=== PATIENT | female | born 1940 | race Caucasian/White ===

== ENCOUNTER → 2023-11-06 10:13 | Outpatient (REF) | payer MEDICARE, BC, SELFPAY ==
[2023-11-06 11:55] LABS: % Basophils 1.3 % (0-2); % Eosinophils 5.7 % (0-6); % Immature Granulocytes 0.2 % (0-0.5); % Monocytes 14.9 % (1.7-9.3); % Neutrophils 68.9 % (42.2-75.2); Absolute Basophils 0.1 10^3/uL (0-0.2); Absolute Eosinophils 0.3 10^3/uL (0-0.7); Absolute Lymphocytes 0.4 10^3/uL (1.2-3.4); Absolute Monocytes 0.7 10^3/uL (0.1-0.6); Absolute Neutrophils 3.3 10^3/uL (1.4-6.5); Hematocrit 35.1 % (37.0-47.0); Hemoglobin 10.7 g/dL (12.0-16.0); Mean Corp Hgb Conc. 30.5 g/dL (33.0-37.0); Mean Corpuscular Hgb 25.8 pg (27.0-31.0); Mean Corpuscular Volume 84.6 fL (81.0-99.0); Mean Platelet Volume 10.8 fL (7.4-10.4); Nucleated Red Blood Cells % 0 %; Platelet Count 248 10^3/uL (130-400); Red Blood Cell Count 4.15 10^6/uL (4.20-5.40); Red Cell Dist. Width 17.6 % (11.5-14.5); White Blood Cell Count 4.8 10^3/uL (4.8-10.8)
[2023-11-06 12:13] LABS: ALT (SGPT) < 10 U/L (0-35); AST (SGOT) 14 U/L (14-36); Albumin 2.6 g/dl (3.5-5.0); Alkaline Phosphatase 65 U/L (38-126); Blood Urea Nitrogen 22 mg/dl (7-17); Calcium 8.2 mg/dl (8.4-10.2); Carbon Dioxide 23 mmol/L (22-30); Chloride 109 mmol/L (98-107); Glucose 79 mg/dl (70-99); Potassium 4.4 mmol/L (3.5-5.1); Sodium 137 mmol/L (135-145); Total Bilirubin 0.4 mg/dl (0.2-1.3); Total Protein 5.3 g/dl (6.3-8.2); eGFR > 60.00
[2023-11-06 13:49] LABS: TSH 0.39 uIU/ml (0.47-4.68)
[2023-11-06 14:00] LABS: Glycohemoglobin (HgbA1c) 6.3 % (4.0-5.6)
== END ==
LOC: OLABP 10:13
PROVIDERS: ATTENDING PHYSICIAN Family Medicine
DX: E11.9 Type 2 diabetes mellitus without complications (principal); E03.9 Hypothyroidism, unspecified; K59.00 Constipation, unspecified; M62.59 Muscle wasting and atrophy, not elsewhere classified, multiple sites; R26.2 Difficulty in walking, not elsewhere classified; Z74.1 Need for assistance with personal care; J18.9 Pneumonia, unspecified organism; I48.21 Permanent atrial fibrillation; F22 Delusional disorders; I10 Essential (primary) hypertension
CPT/HCPCS: 36415; 80053; 83036; 84443; 85025

== ENCOUNTER → 2024-01-20 11:22 | Outpatient (REF) | payer MEDICARE, BC, SELFPAY ==
[2024-01-20 13:06] LABS: Hematocrit 35.9 % (37.0-47.0); Mean Corp Hgb Conc. 30.6 g/dL (33.0-37.0); Mean Corpuscular Hgb 27.7 pg (27.0-31.0); Mean Corpuscular Volume 90.4 fL (81.0-99.0); Mean Platelet Volume 11.7 fL (7.4-10.4); Platelet Count 248 10^3/uL (130-400); Red Blood Cell Count 3.97 10^6/uL (4.20-5.40); Red Cell Dist. Width 21.5 % (11.5-14.5); White Blood Cell Count 9.2 10^3/uL (4.8-10.8)
== END ==
LOC: OLABP 11:22
PROVIDERS: ATTENDING PHYSICIAN Family Medicine
DX: L03.116 Cellulitis of left lower limb (principal); L89.613 Pressure ulcer of right heel, stage 3; I48.21 Permanent atrial fibrillation; R26.2 Difficulty in walking, not elsewhere classified; M62.81 Muscle weakness (generalized); E11.9 Type 2 diabetes mellitus without complications; I10 Essential (primary) hypertension; E03.9 Hypothyroidism, unspecified; F22 Delusional disorders; K59.00 Constipation, unspecified; M62.59 Muscle wasting and atrophy, not elsewhere classified, multiple sites; Z74.1 Need for assistance with personal care; R62.7 Adult failure to thrive; J18.9 Pneumonia, unspecified organism
CPT/HCPCS: 36415; 85027

== ENCOUNTER 2024-01-25 11:13 | Emergency (ER) | payer MEDICARE, BC, SELFPAY ==
[2024-01-25] VITALS (26 sets, daily range): BP systolic 32–73; BP diastolic 21–59
--- NOTE | 2024-01-25 11:32 | ED.GENMED ---
Addendum entered and electronically signed by Francisco Willett DO 01/25/24 15:46:
call placed to ME
Original Note:
History of Present Illness
<Francisco Willett DO - Last Filed: 01/25/24 15:24>
General
Chief Complaint: Breathing Problem
Source: ambulance crew
Exam Limitations: altered mental status
Time Seen by Provider: 01/25/24 11:25
Nursing documentation reviewed up to this point in time: agreed with
Travel History
Have you had any contact with someone who has COVID-19?: No
Do you have any symptoms of coronavirus? Fever > 100 degrees, chills, cough, shortness of breath, sore throat, loss of taste or smell, muscle aches, or headache?: No
History of Present Illness
History of Present Illness:
82-year-old female from [facility] presents with low blood pressure in the 70s, pulse ox in the 50s with decreased responsiveness IO line was placed by EMS, being bagged, minimally responsive she is in A-fib and a slow response no notes of
trauma she has wounds on her arms she is full code by report from EMS
Past History
<DO Patti Tang Last Filed: 01/25/24 15:24>
Past History
ED Past Medical History: Arrthythmia (Atrial fibrillation), GERD, HTN, Hypercholesterolemia, NIDDM, Other (Mycosis fungoides 2009) and Other (cellulitis of arm with MRSA bacteremia 2009; chronic right heel wound); Negative Renal failure
ED Past Surgical History: None
Social History
Tobacco: Non-smoker
Alcohol: None
Personal:
Living: with family (resides with her daughter, Carmen)
Family History
Family History: Other (Noncontributory)
Review of Systems
<DO Patti Tang Last Filed: 01/25/24 15:24>
Review of Systems
Other source history: ambulance crew
All Other Systems: Not applicable
Phy Exam
<Francisco Willett DO - Last Filed: 01/25/24 15:24>
Physical Exam
Physical Exam:
Physical Exam
General: Minimally responsive elderly female being back
Neck: Dry member
Heart: Bradycardia
Lungs: Occasional shallow respiration
Abdomen: Not
Neuro: Minimally
Skin: Cool wounds on the left arm
Psychiatric: Unable to assess
Extremities: Edema is
Scores
<Ras Hernandez PA-C - Last Filed: 01/25/24 13:11>
Heart Failure Risk
Heart Failure Risk Score: Not Applicable
Course
<Francisco Willett DO - Last Filed: 01/25/24 15:24>
Orders/Labs/Results
Orders:
Orders
01/25/24 11:14
Calcium CHLORIDE [Calcium Chloride 10% Syringe] 1,000 mg .ROUTE .STK-MED ONE
EPINEPHrine [Adrenalin 1 mg/10 ml] 2 mg .ROUTE .STK-MED ONE
Sodium Bicarbonate 50 meq .ROUTE .STK-MED ONE
01/25/24 11:19
Electrocardiogram (*1) Urgent
Reason for Study: Shortness of Breath
01/25/24 11:20
EKG- Treatment ONCE
01/25/24 11:26
Electrocardiogram (*1) Urgent
Reason for Study: Other
Other Reason for Exam: sepsis
Cardiac Monitoring- Treatment ONCE
EKG- Treatment ONCE
Urinalysis Reflex To Culture Urgent
CR Chest Portable - 1 View Urgent
Comment:
Reason For Exam: tube
Reason Study Needs to be Portable: Patient Unstable
01/25/24 11:27
0.9% Sodium Chloride 1000 ml [Nss] 2,000 ml IV BOLUS
01/25/24 11:28
FentaNYL 1,000 MCG/100 ML [Sublimaze] 1,000 mcg in 100 ml IV NOW
Indication:: Light Sedation
Begin Infusion:: Now
Goal:: pain score </= 1, CPOT 0-2
Maximum dose in mcg/hr:: 300
Initial Dose in mcg/hr:: 5
Titration Instructions:: Titrate every 30 minutes if patient exhibits signs of pain or discomfort
Titration Instructions:: (pain score >/= 2, CPOT >/= 3).
Titration Instructions:: Administer bolus dose and increase infusion by 25 mcg/hr.
Taper Instructions:: If pain score at goal for 4 consecutive hours (pain score </= 1, CPOT 0-2)
Taper Instructions:: decrease infusion by 50 mcg/hr every 2 hours.
Taper Instructions:: When dose </= 50 mcg/hr may turn infusion off and consider PRN
Taper Instructions:: intermittent bolus doses only.
Over-sedation Instructions:: If CPOT 0-2 (goal) and RASS -3 to -5 (below goal) decrease sedative by 50%
Over-sedation Instructions:: first. If pain score remains at goal and RASS remains below goal in 1 hour,
Over-sedation Instructions:: decrease opioid infusion by 50%.
Notify provider:: immediately if pt exhibits: chest wall rigidity, hemodynamic instability,
Notify provider:: agitation/pain despite maximum dosing, pain when RASS below goal.
Additional Instructions:: Patient MUST be mechanically ventilated.
Fentanyl Citrate/Pf [Sublimaze] 10 mcg IV NOW STA
Fentanyl Citrate/Pf [Sublimaze] 50 mcg IV [id number] PRN
Ventilator Initial Settings [RESP] Urgent
01/25/24 11:30
NORepinephrine 4 MG/250 ML [Levophed] 4 mg in 250 ml IV PER PROTOCOL
Initial dose in mcg/min, then titrate:: 2
Titrate to keep:: SBP > 90 mmHg
Titrate by mcg/min:: 1-2 mcg/min
Frequency of titrations (minutes):: 5
Maximum dose in ICU in mcg/min:: 30
Maximum dose in IMU in mcg/min:: 8
Maximum dose in IVU in mcg/min:: 4
Begin to taper infusion when:: Remained at goal for 4hrs
Taper by mcg/min:: 1-2 mcg/min
Frequency of taper (minutes) if patient maintains goal:: 30
Taper to off?: Yes
If infusion off & no longer maintaining goal:: Contact Provider
01/25/24 11:33
Complete Blood Count/With Diff Urgent
Comprehensive Metabolic Panel Urgent
Procalcitonin Urgent
PCT Algorithmm Indication: Sepsis
Troponin I Urgent
01/25/24 11:44
Arterial Blood Gas Urgent
%Oxygen/Room Air: 100
01/25/24 12:04
Calcium Gluconate 1 gram/100mL [Calcium Gluconate] 1 gram in 100 ml IV ONCE
Insulin Human Regular [Novolin R] 5 units IV NOW STA
Sodium Bicarbonate 50 meq IV NOW STA
01/25/24 12:05
Dextrose 50%-Water [Dextrose 50% Syringe] 25 grams IV NOW STA
Piperacillin/Tazo 3.375 Gram [Zosyn] 3.375 gram in 50 ml IV NOW
01/25/24 12:08
Pino Placement- Treatment ONCE
Reason for insertion: I&O's Critical Care
01/25/24 12:09
Calcium CHLORIDE [Calcium Chloride 10% Syringe] 1,000 mg .ROUTE .STK-MED ONE
01/25/24 12:15
Sterile Water For Inj [Sterile Water For Injection 1000 ml] 1,000 ml Sodium Bicarbonate 150 meq IV 200 mls/hr
01/25/24 12:18
CXR [CR Chest Portable - 1 View] Stat
Comment:
Reason For Exam: tlc placement
Reason Study Needs to be Portable: Patient Unstable
01/25/24 12:27
Senior Project Engineer Consult Urgent
Consulting Provider: Venu Muñoz
Was physician already notified: Yes
NEPHROLOGY CONSULT Urgent
Consulting Provider: Sury Singh
Was physician already notified: Yes
01/25/24 12:30
EPINEPHrine 4 mg/250 mL NSS [Adrenalin] 4 mg in 250 ml IV PER PROTOCOL
Initial dose in mcg/min, then titrate:: 2
Titrate to keep:: SBP > 90 mmHg
Titrate by mcg/min:: 0.5-1 mcg/min
Frequency of titrations (minutes):: 5
Maximum dose in mcg/min:: 10
Begin to taper infusion when:: Remained at goal for 4hrs
Taper by mcg/min:: 0.5-1 mcg/min
Frequency of taper (minutes) if patient maintains goal:: 30
Taper to off?: Yes
If infusion off & no longer maintaining goal:: Contact Provider
01/25/24 12:42
Atropine Sulfate [Atropine 0.1 mg/ml Syringe] 1 mg .ROUTE .STK-MED ONE
EPINEPHrine [Adrenalin 1 mg/10 ml] 1 mg .ROUTE .STK-MED ONE
Etomidate [Amidate] 40 mg .ROUTE .STK-MED ONE
Magnesium Sulfate 1 G/D5w [Magnesium Sulfate] 1 gm .ROUTE .STK-MED ONE
Succinylcholine Chloride [Anectine] 200 mg .ROUTE .STK-MED ONE
01/25/24 12:58
Lactic Acid Q4H
Comment: CANCEL 2nd LACTIC ACID IF 1st LACTIC ACID IS LESS THAN 2
PTT Urgent
Prothrombin Time Urgent
Blood Culture Q30M
ZULMA Source: Blood/Venous
Specimen Description:
01/25/24 13:06
Warm [Thermal Regulation-Treatment] ONCE
Mode:: Automatic
Type of thermoregulation:: Heating
PATIENT'S Goal Temperature:: 96.8 F (36 C)
Comments/Additional Instructions:: Temperature and skin assessment per unit protocol
Hydrocortisone Sod Succinate [Solu-Cortef] 100 mg IV NOW STA
01/25/24 13:15
Vasopressin 20 Units/100 ml [Pitressin] 20 units in 100 ml IV PER PROTOCOL
Initial dose in units/min, then titrate:: 0.02
Titrate to keep:: MAP > 65 mmHg
Titrate by units/min:: 0.005 units/min
Frequency of titrations (minutes):: 10
Maximum dose in units/min:: 0.1
Begin to taper infusion when:: Remained at goal for 8hrs
Taper by units/min:: 0.005 units/min
Frequency of taper (minutes) if patient maintains goal:: 60
Taper to off?: Yes
If infusion off and no longer mantaining goal:: Contact Provider
01/25/24 13:38
NORepinephrine 4 MG/250 ML [Levophed] 4 mg in 250 ml .ROUTE .STK-MED
01/25/24 13:49
COVID-19 Antigen Urgent
Source: Nasal Swab
Influenza A+B Rapid Molecular Urgent
ZULMA Source: Nasal Swab
Specimen Description:
01/25/24 14:00
VANCOMYCIN Pharmacy to Dose [VANCOCIN Pharmacy to Dose] 1 each Pharmacy To Prepare [Call Pharmacy To Prepare] 0 ml IV PER PROTOCOL
01/25/24 14:17
ABG [Arterial Blood Gas] Urgent
%Oxygen/Room Air: vent
Basic Metabolic Panel Urgent
01/25/24 14:38
Morphine Sulfate 4 mg IV NOW STA
Morphine Sulfate 4 mg IV NOW STA
01/25/24 15:30
Lactic Acid Q4H
Comment: CANCEL 2nd LACTIC ACID IF 1st LACTIC ACID IS LESS THAN 2
Abnormal Lab Results
01/25/24 01/25/24 01/25/24
11:33 11:44 12:58
WBC 15.8 H 10^3/uL
(4.8-10.8)
RBC 3.75 L 10^6/uL
(4.20-5.40)
Hgb 10.5 L g/dL
(12.0-16.0)
MCHC 28.3 L g/dL
(33.0-37.0)
RDW 22.6 H %
(11.5-14.5)
MPV 11.3 H fL
(7.4-10.4)
Abs Immat Gran (auto) 0.6 H 10^3/uL
(0-0.05)
Absolute Neuts (auto) 11.5 H 10^3/uL
(1.4-6.5)
Absolute Monos (auto) 1.9 H 10^3/uL
(0.1-0.6)
Immature Gran % 3.5 H %
(0-0.5)
Lymphocytes % 10.4 L %
(20.5-51.1)
Monocytes % 12.1 H %
(1.7-9.3)
PT 46.2 H Sec
(11.4-14.6)
APTT 42.3 H Sec
(23.4-35.0)
pH < 6.80 L*
(7.35-7.45)
pCO2 27 L mmHg
(32-35)
pO2 250 H mmHg
(83-108)
ABG O2 Sat (Measured) 99.8 H %
(94-98)
Potassium 6.3 H* mmol/L
(3.5-5.1)
Carbon Dioxide < 5 L* mmol/L
(22-30)
BUN 83 H mg/dl
(7-17)
Creatinine 2.7 H mg/dL
(0.6-1.0)
Glucose 110 H mg/dl
(70-99)
Lactic Acid 13.5 H* mmol/L
(0.7-2.0)
Calcium 8.0 L mg/dl
(8.4-10.2)
AST 37 H U/L
(14-36)
Total Protein 5.1 L g/dl
(6.3-8.2)
Albumin 2.5 L g/dl
(3.5-5.0)
01/25/24 11:33
Vital Signs
Initial and Last Documented VS:
Initial Vital Signs
Pulse Resp BP
122 20 70/31
01/25/24 11:20 01/25/24 11:20 01/25/24 11:20
Last Documented Vital Signs
Temp Pulse Resp BP Pulse Ox
88.2 F L 49 6 66/39 78
01/25/24 14:14 01/25/24 15:00 01/25/24 14:55 01/25/24 14:15 01/25/24 14:40
<Ras Hernandez PA-C - Last Filed: 01/25/24 13:11>
Orders/Labs/Results
Orders:
Orders
01/25/24 11:14
Calcium CHLORIDE [Calcium Chloride 10% Syringe] 1,000 mg .ROUTE .STK-MED ONE
EPINEPHrine [Adrenalin 1 mg/10 ml] 2 mg .ROUTE .STK-MED ONE
Sodium Bicarbonate 50 meq .ROUTE .STK-MED ONE
01/25/24 11:19
Electrocardiogram (*1) Urgent
Reason for Study: Shortness of Breath
01/25/24 11:20
EKG- Treatment ONCE
01/25/24 11:26
Electrocardiogram (*1) Urgent
Reason for Study: Other
Other Reason for Exam: sepsis
Cardiac Monitoring- Treatment ONCE
EKG- Treatment ONCE
Urinalysis Reflex To Culture Urgent
CR Chest Portable - 1 View Urgent
Comment:
Reason For Exam: tube
Reason Study Needs to be Portable: Patient Unstable
01/25/24 11:27
0.9% Sodium Chloride 1000 ml [Nss] 2,000 ml IV BOLUS
01/25/24 11:28
FentaNYL 1,000 MCG/100 ML [Sublimaze] 1,000 mcg in 100 ml IV NOW
Indication:: Light Sedation
Begin Infusion:: Now
Goal:: pain score </= 1, CPOT 0-2
Maximum dose in mcg/hr:: 300
Initial Dose in mcg/hr:: 5
Titration Instructions:: Titrate every 30 minutes if patient exhibits signs of pain or discomfort
Titration Instructions:: (pain score >/= 2, CPOT >/= 3).
Titration Instructions:: Administer bolus dose and increase infusion by 25 mcg/hr.
Taper Instructions:: If pain score at goal for 4 consecutive hours (pain score </= 1, CPOT 0-2)
Taper Instructions:: decrease infusion by 50 mcg/hr every 2 hours.
Taper Instructions:: When dose </= 50 mcg/hr may turn infusion off and consider PRN
Taper Instructions:: intermittent bolus doses only.
Over-sedation Instructions:: If CPOT 0-2 (goal) and RASS -3 to -5 (below goal) decrease sedative by 50%
Over-sedation Instructions:: first. If pain score remains at goal and RASS remains below goal in 1 hour,
Over-sedation Instructions:: decrease opioid infusion by 50%.
Notify provider:: immediately if pt exhibits: chest wall rigidity, hemodynamic instability,
Notify provider:: agitation/pain despite maximum dosing, pain when RASS below goal.
Additional Instructions:: Patient MUST be mechanically ventilated.
Fentanyl Citrate/Pf [Sublimaze] 10 mcg IV NOW STA
Fentanyl Citrate/Pf [Sublimaze] 50 mcg IV [id number] PRN
Ventilator Initial Settings [RESP] Urgent
01/25/24 11:30
NORepinephrine 4 MG/250 ML [Levophed] 4 mg in 250 ml IV PER PROTOCOL
Initial dose in mcg/min, then titrate:: 2
Titrate to keep:: SBP > 90 mmHg
Titrate by mcg/min:: 1-2 mcg/min
Frequency of titrations (minutes):: 5
Maximum dose in ICU in mcg/min:: 30
Maximum dose in IMU in mcg/min:: 8
Maximum dose in IVU in mcg/min:: 4
Begin to taper infusion when:: Remained at goal for 4hrs
Taper by mcg/min:: 1-2 mcg/min
Frequency of taper (minutes) if patient maintains goal:: 30
Taper to off?: Yes
If infusion off & no longer maintaining goal:: Contact Provider
01/25/24 11:33
Complete Blood Count/With Diff Urgent
Comprehensive Metabolic Panel Urgent
Procalcitonin Urgent
PCT Algorithmm Indication: Sepsis
Troponin I Urgent
01/25/24 11:44
Arterial Blood Gas Urgent
%Oxygen/Room Air: 100
01/25/24 12:04
Calcium Gluconate 1 gram/100mL [Calcium Gluconate] 1 gram in 100 ml IV ONCE
Insulin Human Regular [Novolin R] 5 units IV NOW STA
Sodium Bicarbonate 50 meq IV NOW STA
01/25/24 12:05
Dextrose 50%-Water [Dextrose 50% Syringe] 25 grams IV NOW STA
Piperacillin/Tazo 3.375 Gram [Zosyn] 3.375 gram in 50 ml IV NOW
01/25/24 12:08
Pino Placement- Treatment ONCE
Reason for insertion: I&O's Critical Care
01/25/24 12:09
Calcium CHLORIDE [Calcium Chloride 10% Syringe] 1,000 mg .ROUTE .STK-MED ONE
01/25/24 12:15
Sterile Water For Inj [Sterile Water For Injection 1000 ml] 1,000 ml Sodium Bicarbonate 150 meq IV 200 mls/hr
01/25/24 12:18
CXR [CR Chest Portable - 1 View] Stat
Comment:
Reason For Exam: tlc placement
Reason Study Needs to be Portable: Patient Unstable
01/25/24 12:27
Senior Project Engineer Consult Urgent
Consulting Provider: Venu Muñoz
Was physician already notified: Yes
NEPHROLOGY CONSULT Urgent
Consulting Provider: Sury Singh
Was physician already notified: Yes
01/25/24 12:30
EPINEPHrine 4 mg/250 mL NSS [Adrenalin] 4 mg in 250 ml IV PER PROTOCOL
Initial dose in mcg/min, then titrate:: 2
Titrate to keep:: SBP > 90 mmHg
Titrate by mcg/min:: 0.5-1 mcg/min
Frequency of titrations (minutes):: 5
Maximum dose in mcg/min:: 10
Begin to taper infusion when:: Remained at goal for 4hrs
Taper by mcg/min:: 0.5-1 mcg/min
Frequency of taper (minutes) if patient maintains goal:: 30
Taper to off?: Yes
If infusion off & no longer maintaining goal:: Contact Provider
01/25/24 12:42
Atropine Sulfate [Atropine 0.1 mg/ml Syringe] 1 mg .ROUTE .STK-MED ONE
EPINEPHrine [Adrenalin 1 mg/10 ml] 1 mg .ROUTE .STK-MED ONE
Etomidate [Amidate] 40 mg .ROUTE .STK-MED ONE
Magnesium Sulfate 1 G/D5w [Magnesium Sulfate] 1 gm .ROUTE .STK-MED ONE
Succinylcholine Chloride [Anectine] 200 mg .ROUTE .STK-MED ONE
01/25/24 12:58
Lactic Acid Q4H
Comment: CANCEL 2nd LACTIC ACID IF 1st LACTIC ACID IS LESS THAN 2
PTT Urgent
Prothrombin Time Urgent
Blood Culture Q30M
ZULMA Source: Blood/Venous
Specimen Description:
01/25/24 13:06
Warm [Thermal Regulation-Treatment] ONCE
Mode:: Automatic
Type of thermoregulation:: Heating
PATIENT'S Goal Temperature:: 96.8 F (36 C)
Comments/Additional Instructions:: Temperature and skin assessment per unit protocol
Hydrocortisone Sod Succinate [Solu-Cortef] 100 mg IV NOW STA
01/25/24 13:15
Vasopressin 20 Units/100 ml [Pitressin] 20 units in 100 ml IV PER PROTOCOL
Initial dose in units/min, then titrate:: 0.02
Titrate to keep:: MAP > 65 mmHg
Titrate by units/min:: 0.005 units/min
Frequency of titrations (minutes):: 10
Maximum dose in units/min:: 0.1
Begin to taper infusion when:: Remained at goal for 8hrs
Taper by units/min:: 0.005 units/min
Frequency of taper (minutes) if patient maintains goal:: 60
Taper to off?: Yes
If infusion off and no longer mantaining goal:: Contact Provider
01/25/24 13:38
NORepinephrine 4 MG/250 ML [Levophed] 4 mg in 250 ml .ROUTE .STK-MED
01/25/24 13:49
COVID-19 Antigen Urgent
Source: Nasal Swab
Influenza A+B Rapid Molecular Urgent
ZULMA Source: Nasal Swab
Specimen Description:
01/25/24 14:00
VANCOMYCIN Pharmacy to Dose [VANCOCIN Pharmacy to Dose] 1 each Pharmacy To Prepare [Call Pharmacy To Prepare] 0 ml IV PER PROTOCOL
01/25/24 14:17
ABG [Arterial Blood Gas] Urgent
%Oxygen/Room Air: vent
Basic Metabolic Panel Urgent
01/25/24 14:38
Morphine Sulfate 4 mg IV NOW STA
Morphine Sulfate 4 mg IV NOW STA
01/25/24 15:30
Lactic Acid Q4H
Comment: CANCEL 2nd LACTIC ACID IF 1st LACTIC ACID IS LESS THAN 2
Abnormal Lab Results
01/25/24 01/25/24 01/25/24
11:33 11:44 12:58
WBC 15.8 H 10^3/uL
(4.8-10.8)
RBC 3.75 L 10^6/uL
(4.20-5.40)
Hgb 10.5 L g/dL
(12.0-16.0)
MCHC 28.3 L g/dL
(33.0-37.0)
RDW 22.6 H %
(11.5-14.5)
MPV 11.3 H fL
(7.4-10.4)
Abs Immat Gran (auto) 0.6 H 10^3/uL
(0-0.05)
Absolute Neuts (auto) 11.5 H 10^3/uL
(1.4-6.5)
Absolute Monos (auto) 1.9 H 10^3/uL
(0.1-0.6)
Immature Gran % 3.5 H %
(0-0.5)
Lymphocytes % 10.4 L %
(20.5-51.1)
Monocytes % 12.1 H %
(1.7-9.3)
PT 46.2 H Sec
(11.4-14.6)
APTT 42.3 H Sec
(23.4-35.0)
pH < 6.80 L*
(7.35-7.45)
pCO2 27 L mmHg
(32-35)
pO2 250 H mmHg
(83-108)
ABG O2 Sat (Measured) 99.8 H %
(94-98)
Potassium 6.3 H* mmol/L
(3.5-5.1)
Carbon Dioxide < 5 L* mmol/L
(22-30)
BUN 83 H mg/dl
(7-17)
Creatinine 2.7 H mg/dL
(0.6-1.0)
Glucose 110 H mg/dl
(70-99)
Lactic Acid 13.5 H* mmol/L
(0.7-2.0)
Calcium 8.0 L mg/dl
(8.4-10.2)
AST 37 H U/L
(14-36)
Total Protein 5.1 L g/dl
(6.3-8.2)
Albumin 2.5 L g/dl
(3.5-5.0)
01/25/24 11:33
Vital Signs
Initial and Last Documented VS:
Initial Vital Signs
Pulse Resp BP
122 20 70/31
01/25/24 11:20 01/25/24 11:20 01/25/24 11:20
Last Documented Vital Signs
Temp Pulse Resp BP Pulse Ox
88.2 F L 49 6 66/39 78
01/25/24 14:14 01/25/24 15:00 01/25/24 14:55 01/25/24 14:15 01/25/24 14:40
Procedures
<Francisco Willett DO - Last Filed: 01/25/24 15:24>
Intubations
Procedure completed by: kera
Method of Intubation: curved blade
Tube size (cm): 7.0
Placement confirmed by: auscutation
Breath sounds after intubation: equal
Intubation complications: no complications and oral-unsuccessful attempt
Additional information:
First attempt unsuccessful patient subsequently paralyzed intubated without difficulty
<Ras Hernandez PA-C - Last Filed: 01/25/24 13:11>
Central Line
Left Internal jugular:
Indication for procedure:: Sepsis
Procedure completed by: David
Consent form signed: No
If no, reason: Emergency procedure
Central line lumen: triple
Number of attempts: 1
Central line complications: none
Sterile dressing applied?: Yes
X-ray: shows good placement
Additional information:
Central line placed due to persistent hypotension. No complications during procedure.
<Francisco Willett, DO - Last Filed: 01/25/24 15:24>
MDM/Problems Addressed
Differential Diagnosis Includes:
Sepsis intracerebral hemorrhage electrolyte abnormality respiratory arrest
MDM/Problems Addressed:
Hypertensive bradycardia
<Francisco Willett, DO - Last Filed: 01/25/24 15:24>
*Radiology
Radiology exam reviewed: preliminary read by ED provider
*Pulse Oximetry
Patient hypoxic: yes
*EKG
Interpreted by ED Provider?: Yes
Interpretation: abnormal
Comparison EKG: no comparison EKG present
Heart Rate: 50
Rate: bradycardiac
Ischemia: non-specific ST changes
*Director Of Housing Interpretation
Rate: bradycardiac
Interpretation: abnormal
Heart Rate: 58
Rhythm: sinus and a-fib
*Critical Care Note
Total Time (30-74mins, 75-104mins- exclusive of procedures): 76
<Francisco Willett, DO - Last Filed: 01/25/24 15:24>
Update Note
Update Note:
12:10 PM labs are noted calcium and bicarb were called to the room urgently patient with a period of pulselessness just after central line be placed, recognized immediately CPR started epi bicarb calcium ordered with return of spontaneous
circulation hospitalist and can patcher have been notified, antibiotics have been ordered, prognosis appears guarded
1:10 PM numerous conversations, family updated third route, asked him to come to the bedside we need to confirm the goals of care, nephrology has been at bedside, too unstable for any intervention, patient is given stress dose steroids third
pressor, she is hypothermic she has been given warming blanket and prognosis appears grim
137: Third pressor patient on ventilator adjusted numerous conversations overtax with hospitalist that can patcher
Family apparently is en route
2:30 PM family has arrived including the daughter who is a physician agreement is to pursue comfort measures patient extubated placed on morphine
Time of 3:10 PM
ED Attending Note
<Francisco Willett, DO - Last Filed: 01/25/24 15:24>
-
Portions of this chart may have been created with voice recognition software.� Occasional wrong word or��sound alike� substitutions may have occurred due to the inherent limitations of voice recognition software.
Discharge Plan
Departure
Patient Disposition:
Date of Disposition: 01/25/24
Time of Disposition: 15:23
Admit to: ICU
Patient with high blood pressure during this ER visit?: No
Condition: Critical
Covid-19: Not Applicable
Discharge Problem:
VENTILATOR DEPENDENT RESPIRATOR FAILURE, Acidosis, Hyperkalemia
Prescriptions:
No Action
levothyroxine 25 MCG tablet
25 mcg PO DAILY Qty: 30 0RF
metformin 1,000 MG tablet
1,000 mg PO BID Qty: 60 0RF
Eliquis 5 MG tablet
5 mg PO BID Qty: 60 0RF
rosuvastatin 5 mg tablet
5 mg PO HS
mupirocin 2 % ointment
1 applic TOPICAL TID
acetaminophen 325 mg Tablet
650 mg PO Q4HPRN PRN (Reason: mild pain or temp > 100.4 F) Qty: 0 0RF
white petrolatum [Hydrophor] 42 % Ointment
1 applic topical DAILY Qty: 100 0RF
duloxetine 60 mg Capsule,Delayed Release(Dr/Ec)
60 mg PO DAILY Qty: 1 0RF
metoprolol succinate 50 mg Tablet Extended Release 24 Hr
50 mg PO BID Qty: 1 0RF
lisinopril 10 mg Tablet
10 mg PO DAILY Qty: 1 0RF
docusate sodium 100 mg Capsule
100 mg PO BID Qty: 1 0RF
doxycycline hyclate [Vibramycin] 100 mg Capsule
100 mg PO BID
Patient Comments:
order by intermediate on 01/09/24 open wound on right leg
tramadol 50 mg Tablet
50 mg PO Q8HPRN PRN (Reason: severe pain)
magnesium hydroxide [Milk of Magnesia] 400 mg/5 mL Suspension
2,400 mg PO Q96H PRN (Reason: if no bm on 4th day)
bisacodyl [Dulcolax (bisacodyl)] 10 mg Suppository
10 mg VA DAILYPRN PRN (Reason: constipation)
Fleet Enema 19-7 gram/118 mL Enema
118 ml VA DAILYPRN PRN (Reason: constipation)
gentamicin 0.1 % Ointment
1 applic TOPICAL DAILY
diclofenac sodium [Voltaren] 1 % Gel
0 g TOPICAL DAILY
risperidone 0.5 mg tablet,disintegrating
0.5 mg PO HS
Interventions
Interventions:
*Risk Screen - Suicide Last Done: 01/25/24 11:42
*General Assessment Last Done: 01/25/24 11:42
*Neglect/Abuse Screening Last Done: 01/25/24 11:42
ED- Cardiac Assessment Last Done: 01/25/24 11:42
ED- Pulmonary Assessment Last Done: 01/25/24 11:15
Discharge Date and Time
Print Language: GEORGIAN
[2024-01-25 11:44] LABS: % Basophils 0.8 % (0-2); % Eosinophils 0.2 % (0-6); % Immature Granulocytes 3.5 % (0-0.5); % Lymphocytes 10.4 % (20.5-51.1); % Monocytes 12.1 % (1.7-9.3); Absolute Basophils 0.1 10^3/uL (0-0.2); Absolute Immature Granulocytes 0.6 10^3/uL (0-0.05); Absolute Lymphocytes 1.7 10^3/uL (1.2-3.4); Absolute Monocytes 1.9 10^3/uL (0.1-0.6); Absolute Neutrophils 11.5 10^3/uL (1.4-6.5); Hematocrit 37.1 % (37.0-47.0); Hemoglobin 10.5 g/dL (12.0-16.0); Mean Corp Hgb Conc. 28.3 g/dL (33.0-37.0); Mean Corpuscular Volume 98.9 fL (81.0-99.0); Mean Platelet Volume 11.3 fL (7.4-10.4); Nucleated Red Blood Cells % 0.7 %; Platelet Count 256 10^3/uL (130-400); Red Blood Cell Count 3.75 10^6/uL (4.20-5.40); Red Cell Dist. Width 22.6 % (11.5-14.5); White Blood Cell Count 15.8 10^3/uL (4.8-10.8)
[2024-01-25] MEDS: SUBLIMAZE 50 MCG IV (11:48)
[2024-01-25 11:54] LABS: O2 Saturation % 99.8 % (94-98); PCO2 27 mmHg (32-35); PO2 250 mmHg (83-108)
[2024-01-25] MEDS: LEVOPHED 250 IV (11:54)
[2024-01-25] MEDS: NSS 2000 IV (11:55)
[2024-01-25 11:58] LABS: O2 Therapy 100
[2024-01-25 12:01] LABS: pH < 6.80 (7.35-7.45)
[2024-01-25 12:02] LABS: AST (SGOT) 37 U/L (14-36); Albumin 2.5 g/dl (3.5-5.0); Alkaline Phosphatase 60 U/L (38-126); Blood Urea Nitrogen 83 mg/dl (7-17); Carbon Dioxide < 5 mmol/L (22-30); Chloride 107 mmol/L (98-107); Glucose 110 mg/dl (70-99); Potassium 6.3 mmol/L (3.5-5.1); Sodium 141 mmol/L (135-145); Total Bilirubin 0.5 mg/dl (0.2-1.3); Total Protein 5.1 g/dl (6.3-8.2)
[2024-01-25 12:05] LABS: Troponin I < 0.012 ng/ml
[2024-01-25 12:10] LABS: Procalcitonin 0.13 ng/ml (0.0-0.25)
[2024-01-25] MEDS: SODIUM BICARBONATE 50 MEQ IV (12:11)
[2024-01-25 12:29] LABS: eGFR 16.97
[2024-01-25] MEDS: ADRENALIN 250 IV (12:35)
[2024-01-25] MEDS: CALCIUM GLUCONATE 100 IV (12:35)
[2024-01-25] MEDS: DEXTROSE 50% SYRINGE 25 GRAMS IV (12:37)
[2024-01-25] MEDS: NOVOLIN R 5 UNITS IV (12:39)
[2024-01-25] MEDS: ZOSYN 50 IV (12:41)
[2024-01-25 12:55] LABS: ALT (SGPT) 26 U/L (0-35)
[2024-01-25] MEDS: SODIUM BICARBONATE 1150 MEQ IV (13:01)
[2024-01-25] MEDS: SOLU-CORTEF 100 MG IV (13:12)
[2024-01-25 13:21] LABS: INR 4.94; PT 46.2 Sec (11.4-14.6)
[2024-01-25 13:22] LABS: APTT 42.3 Sec (23.4-35.0)
[2024-01-25] MEDS: PITRESSIN 100 IV (13:23)
[2024-01-25 13:39] LABS: Acanthocytes 1+; Anisocytosis 1+; Hypochromasia 1+; Macrocytosis 1+; Normal RBC Morphology No
--- NOTE | 2024-01-25 13:43 | W.CON.NEPH ---
Consultation
-
Date/Time Consultation Requested: 01/25/24 1221
Date/Time Consultation Performed: 01/25/24 1300
Requesting Provider: Francisco Stoddard
Performing Provider: Sury Hamlin
Reason for Consultation: BINH, severe met acidosis
Medical History
-
Chief Complaint: unresponsive
History of Present Illness:
83y/o femle with PMH of Afib on AC with ELiquis, type 2 DM on metformin, TN on lisinopril, BB, depression, paranoia on cymbalta, h/o DVT, who lives at [facility] sent to ER for found unresponsive. She was noted hypotensive 70s an pulse ox
50s, intubated in ER and pt had wide complex and brief pause which quickly improved with onel and bicarb. She started on pressors, but BP still in 40-50s despite 2lit IVF bolus. Labs noted k 6.3, bicarb <5, cr 2.7. baseline cr at 0.5. Pt had no
response in ER. Family is on way. Folay placed with no UOP, hypothermic. Further history is limited. MOst of the history obtained from ER staff.
Past Medical History
permanent A-fib, DM 2, benign HTN, HLD, hypothyroidism, depression, obesity, history of confusion, paranoia, DVT aug 2020 at [facility],MRSa arm 2009, DVT, chronic amb dysfunction, COVID with prolong hospital stay in Jul through Aug 2023, chr left
heel wound, mycosis fungoides
Social History
Tobacco: Non-Smoker
Alcohol: None
Living: Halfway
Family History
Family History: Unable to Obtain
Allergies / Home Medications
Allergy/AdvReac Type Severity Reaction Status Date / Time
diltiazem [From Cardizem] Allergy Rash Verified 08/08/23 20:41
�Medication �Instructions �Recorded �Confirmed �Type
apixaban 5 mg tablet (Eliquis) 5 mg PO BID Blood clot 04/24/21 01/25/24 Rx
prevention/tx #60 tabs
levothyroxine 25 mcg tablet 25 mcg PO DAILY Thyroid #30 tabs 04/24/21 01/25/24 Rx
metformin 1,000 mg tablet 1,000 mg PO BID #60 tabs 04/24/21 01/25/24 Rx
rosuvastatin 5 mg tablet 5 mg PO HS High Cholesterol 04/11/23 01/25/24 History
mupirocin 2 % topical ointment 1 applic topical TID left upper 06/07/23 01/25/24 History
arm, R posterior Shoulder
w/vaseline
acetaminophen 325 mg tablet 650 mg (2 x 325 mg) PO Q4HPRN PRN 06/11/23 01/25/24 Rx
mild pain or temp > 100.4 F #0 tabs
white petrolatum 42 % topical 1 applic topical DAILY #100 grams 08/13/23 01/25/24 Rx
ointment (Hydrophor)
docusate sodium 100 mg capsule 100 mg PO BID #1 cap 09/13/23 01/25/24 Rx
duloxetine 60 mg capsule,delayed 60 mg PO DAILY #1 cap 09/13/23 01/25/24 Rx
release
lisinopril 10 mg tablet 10 mg PO DAILY #1 tab 09/13/23 01/25/24 Rx
metoprolol succinate 50 mg 50 mg PO BID #1 tab 09/13/23 01/25/24 Rx
tablet,extended release 24 hr
bisacodyl 10 mg rectal suppository 10 mg IN DAILYPRN PRN constipation 01/25/24 01/25/24 History
(Dulcolax (bisacodyl))
diclofenac sodium 1 % topical gel 0 g topical DAILY b/l knee pains 01/25/24 01/25/24 History
doxycycline hyclate 100 mg capsule 100 mg PO BID 01/25/24 01/25/24 History
(Vibramycin)
gentamicin 0.1 % topical ointment 1 applic topical DAILY left upper 01/25/24 01/25/24 History
arm and forarm
magnesium hydroxide 400 mg/5 mL 2,400 mg PO Q96H PRN if no bm on 01/25/24 01/25/24 History
oral suspension (Milk of Magnesia) 4th day
risperidone 0.5 mg disintegrating 0.5 mg PO HS 01/25/24 01/25/24 History
tablet
sodium phosphates 19 gram-7 118 ml IN DAILYPRN PRN constipation 01/25/24 01/25/24 History
gram/118 mL enema (Fleet Enema)
tramadol 50 mg tablet 50 mg PO Q8HPRN PRN severe pain 01/25/24 01/25/24 History
Review of Systems
-
unable to obtain, unresponsive
Physical Exam
Vital Signs
Vital Signs
Temp Pulse Resp BP Pulse Ox
30.8 F L 111 29 54/44 73
01/25/24 13:10 01/25/24 13:40 01/25/24 13:40 01/25/24 13:40 01/25/24 13:40
Lab Results
WBC 15.8 10^3/uL (4.8-10.8) H 01/25/24 11:33
RBC 3.75 10^6/uL (4.20-5.40) L 01/25/24 11:33
Hgb 10.5 g/dL (12.0-16.0) L 01/25/24 11:33
Hct 37.1 % (37.0-47.0) 01/25/24 11:33
Plt Count 256 10^3/uL (130-400) 01/25/24 11:33
Sodium 141 mmol/L (135-145) 01/25/24 11:33
Potassium 6.3 mmol/L (3.5-5.1) H* 01/25/24 11:33
Chloride 107 mmol/L (98-107) 01/25/24 11:33
Carbon Dioxide < 5 mmol/L (22-30) L* 01/25/24 11:33
BUN 83 mg/dl (7-17) H 01/25/24 11:33
Creatinine 2.7 mg/dL (0.6-1.0) H 01/25/24 11:33
eGFR 16.97 01/25/24 11:33
Glucose 110 mg/dl (70-99) H 01/25/24 11:33
Calcium 8.0 mg/dl (8.4-10.2) L 01/25/24 11:33
Albumin 2.5 g/dl (3.5-5.0) L 01/25/24 11:33
Abnormal Lab Results
01/25/24 01/25/24 01/25/24
11:33 11:44 12:58
WBC 15.8 H
RBC 3.75 L
Hgb 10.5 L
MCHC 28.3 L
RDW 22.6 H
MPV 11.3 H
Abs Immat Gran (auto) 0.6 H
Absolute Neuts (auto) 11.5 H
Absolute Monos (auto) 1.9 H
Immature Gran % 3.5 H
Lymphocytes % 10.4 L
Monocytes % 12.1 H
PT 46.2 H
APTT 42.3 H
pH < 6.80 L*
pCO2 27 L
pO2 250 H
ABG O2 Sat (Measured) 99.8 H
Potassium 6.3 H*
Carbon Dioxide < 5 L*
BUN 83 H
Creatinine 2.7 H
Glucose 110 H
Calcium 8.0 L
AST 37 H
Total Protein 5.1 L
Albumin 2.5 L
CXR:
IMPRESSION:
1). There is a new central venous catheter in place through left internal jugular access with its tip extending into the superior vena cava.
There is no pneumothorax
2).There is moderate diffuse coarsening of the interstitial markings throughout both lungs consistent with diffuse pulmonary interstitial inflammatory disease such as may be seen with viral bronchiolitis
Physical Exam
General: Other (not responsive, intubated)
HEENT: Conjunctivae Clear and Neck Supple
Respiratory: Rhonchi
Cardiac: S1/S2 and Regular Rate/Rhythm (bradycardic)
Breast: Deferred by me
Abdomen: Soft, Nontender and Nondistended
Musculoskeletal: Edema (chr 1+) and Other (peripheral cyanosis)
Skin: Other (gen skin changes-mycosis fungoides)
Neuro: Other (unable to assess)
Psych: Other (unable to assess)
Assessment/Plan
-
IMP:
Unresponsive
Septic shock with PNA
Acute hypoxic resp failure
Hyperkalemia
BINH
A gap severe met acidosis with acidemia
Diabetes mellitus type 2
Permanent atrial fibrillation
h/o [facility] hypertension
Hypothyroidism
Mycosis fungoides
Chronic heel wound
h/o COVID in Jul 2023
Hypoalbuminemia
Plan:
P/w unresponsive, and septic shock
hypotension maximize pressors
IVF bolus completed
A gap severe met acidosis-suspect L acid, s/p bicarb pushes
hyperkalemia likely improve with correction of acidosis
cont bicarb IVF
BINH prerenal, no UOP in witt bag -likely ischemic ATN
avoid nephrotoxins, metformin and ACEI
she is probably actively dying, family is on way
grim prognosis
d/w ER
CC time spent 40min
[2024-01-25 14:09] LABS: Lactic Acid 13.5 mmol/L (0.7-2.0)
[2024-01-25 14:11] LABS: COVID-19 Antigen Negative (Negative)
[2024-01-25] MEDS: MORPHINE SULFATE 4 MG IV ×2 (14:46→14:53)
--- NOTE | 2024-01-25 15:39 | W.PN.UPDATE ---
Update Note
Progress Note Update
I was notified about this patient, to ICU by the ER physician, Dr. Willett. Patient was severely hypotensive on mechanical ventilation and multiple vasopressors. Family came to the hospital and transitioned the patient to comfort care. Patient was
never admitted by the hospitalist. Hence I never saw the patient. Multiple updates were given to myself as well as the hospitalist team by the ER physician, Dr. Willett. Patient was terminally extubated and in the ER.
--- NOTE | 2024-01-25 16:54 | CHAP ---
Paged for Ms. Pierce and her family in ED around 3pm, as she was at end of life. Emotional and spiritual support provided, along with a prayer blanket. We offered prayers from the [facility] and asked God's blessings for Constanza and her
loved ones. I contacted [facility] emergency ramp boss line. Fr. Blanco came promptly and provided Sacrament of the Sick.
== END 2024-01-25 18:00 | disposition expired ==
LOC: EMR 11:13
PROVIDERS: CONSULT PHYSICIAN Internal Medicine; CONSULT PHYSICIAN Internal Medicine Critical Care Medicine; EMERGENCY PHYSICIAN Emergency Medicine
DX: J96.90 Respiratory failure, unspecified, unspecified whether with hypoxia or hypercapnia (principal); Z99.11 Dependence on respirator [ventilator] status; E87.20 Acidosis, unspecified; E87.5 Hyperkalemia; I95.9 Hypotension, unspecified; I48.91 Unspecified atrial fibrillation; K21.9 Gastro-esophageal reflux disease without esophagitis; E78.00 Pure hypercholesterolemia, unspecified; E11.9 Type 2 diabetes mellitus without complications; E03.9 Hypothyroidism, unspecified; E66.9 Obesity, unspecified; E88.09 Other disorders of plasma-protein metabolism, not elsewhere classified; F32.A Depression, unspecified; I10 Essential (primary) hypertension; I48.21 Permanent atrial fibrillation; N17.9 Acute kidney failure, unspecified; Z45.2 Encounter for adjustment and management of vascular access device; Z79.01 Long term (current) use of anticoagulants; Z83.49 Family history of other endocrine, nutritional and metabolic diseases; Z86.16 Personal history of COVID-19; Z86.718 Personal history of other venous thrombosis and embolism
CPT/HCPCS: 99291; 96365; 96375; 71045; 80053; 82805; 83605; 84145; 84484; 85025; 85610; 85730; 87040; 87077; 87186; 87205; 87502; 87811; 93005; 94002